=== PATIENT | male | born 1995 | race Caucasian/White ===

== ENCOUNTER 2019-07-26 21:11 | Emergency (ER) | payer OTHER ==
[2019-07-26 21:30] VITALS: O2SAT 100
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
[2019-07-26] MEDS ORDERED: ROCEPHIN 1 Gm-D5w 50 ml Bag** 1 G/50 ML IVPB IV STA (21:45)
[2019-07-26] MEDS ORDERED: ROCEPHIN 1 Gm-D5w 50 ml Bag** 1 G/50 ML IVPB IV ONE (21:46)
[2019-07-26 22:20] VITALS: BP 139/89; PULSE 102
== END 2019-07-26 22:10 | disposition home or self-care (01) ==
LOC: ED 21:11
DX: S81.811A Laceration without foreign body, right lower leg, initial encounter (principal); W26.0XXA Contact with knife, initial encounter; Y93.H2 Activity, gardening and landscaping; Y92.9 Unspecified place or not applicable; Y99.9 Unspecified external cause status
CPT/HCPCS: 12002; 96365; 99283; J0696

== ENCOUNTER 2024-07-20 13:12 | Emergency (ER) | payer OTHER ==
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
[2024-07-20 13:35] VITALS: TEMP 98.1
[2024-07-20] MEDS ORDERED: BENADRYL 50 MG/ML ONE (13:51)
[2024-07-20 13:52] LABS: Absolute Neutrophil Ct (ANC) 4.56 x10^3/uL (1.78-5.38); BASOPHIL % 0.6 % (0.2-1.2); Basophil (Absolute #) 0.04 x10^3/uL (0.01-0.08); Eosinophil % 1.1 % (0.8-7.0); Eosinophil (Absolute #) 0.07 x10^3/uL (0.04-0.54); Hematocrit 43.2 % (40.1-51.0); Hemoglobin 14.6 g/dL (13.7-17.5); IMMATURE GRAN # 0.02 x10^3u/L (0.001-0.031); IMMATURE GRAN % 0.3 % (0.001-0.429); Lymphocyte (Absolute #) 0.99 x10^3/uL (1.32-3.57); Lymphocytes % 16.1 % (21.8-53.1); Mean Cell Volume 91.3 fL (79.0-92.2); Mean Corpuscular Hemoglobin 30.9 pg (25.7-32.2); Mean Corpuscular Hgb Concent. 33.8 g/dL (32.3-36.5); Mean Platelet Volume 7.9 fL (9.4-12.4); Monocyte (Absolute #) 0.48 x10^3/uL (0.30-0.82); Monocytes % 7.8 % (5.3-12.2); Neutrophil % 74.1 % (34.0-67.9); Platelet Count 382 x10^3/uL (163-337); Red Blood Count 4.73 x10^6/uL (4.63-6.08); Red Cell Distribution Width 12.7 % (11.6-14.4); White Blood Count 6.2 x10^3/uL (4.23-9.07)
[2024-07-20] MEDS ORDERED: Sodium Chloride 0.9% 1000 ML 1,000 ML ONE (13:52)
[2024-07-20] MEDS ORDERED: Compazine 10 MG/2 ML ONE (13:52)
[2024-07-20] MEDS: Sodium Chloride 0.9% 1000 ML 1,000 ML IV STA (14:04)
[2024-07-20 14:05] LABS: ALBUMIN 4.6 g/dL (3.5-5.0); ANION GAP 16.4 MEQ/L (5-15); BILIRUBIN,TOTAL 0.5 mg/dL (0.2-1.3); Calcium 9.6 mg/dL (8.4-10.2); Creatinine 1 0.86 mg/dL (0.66-1.25); EST GLOMERULAR FILTRATION RATE 120.2 ML/MIN; Potassium 4.4 mmol/L (3.5-5.1); Total Protein 6.8 g/dL (6.3-8.2)
[2024-07-20] MEDS: BENADRYL 50 MG/ML IV ONE (14:07)
[2024-07-20] MEDS: Compazine 10 MG/2 ML IV ONE (14:07)
[2024-07-20 14:19] VITALS: O2SAT 97
[2024-07-20 14:23] LABS: Appearance Clear (Clear); Bacteria None Seen /HPF (None Seen); Bilirubin Negative (Negative); Blood Negative (Negative); Epithelial Cells None Seen /HPF (None Seen); Glucose, Urine 250 mg/dL (Negative); Hyaline Casts NONE SEEN /LPF (0-2); Ketones Negative (Negative); Leukocyte Esterase Negative (Negative); Nitrite Negative (Negative); Ph 6.5 (4.6-8.0); Protein,Urine Dip Negative (Negative); RBC 0-2 /HPF (0-5); Specific Gravity <=1.005 (1.005-1.030); Urobilinogen 0.2 mg/dL (0.2); WBC 0-2 /HPF (0-5)
[2024-07-20 14:30] LABS: Amphetamine,Urine NEGATIVE (NEGATIVE); Barbiturate,Urine NEGATIVE (NEGATIVE); Benzodiazepine,Urine NEGATIVE (NEGATIVE); Cocaine,Urine NEGATIVE (NEGATIVE); Methadone,Urine NEGATIVE (NEGATIVE); Opiate,Urine NEGATIVE (NEGATIVE); PCP,Urine NEGATIVE (NEGATIVE); THC,Urine NEGATIVE (NEGATIVE)
[2024-07-20 15:12] VITALS: BP 125/84; PULSE 93; RESP 19
== END 2024-07-20 15:13 | disposition home or self-care (01) ==
LOC: ED 13:12
DX: R73.9 Hyperglycemia, unspecified (principal); R11.0 Nausea; R42 Dizziness and giddiness; Z79.899 Other long term (current) drug therapy
CPT/HCPCS: 36415; 80053; 80307; 81001; 82947; 85025; 93005; 96361; 96374; 96375; 99284; J1200